=== PATIENT | female | born 1970 | race Asian ===

== ENCOUNTER 2018-03-19 15:37 | Emergency (ER) | payer BC ==
[~2018-03-19] VITALS: Ht 162.6 cm; Wt 66.7 kg
[2018-03-19 15:37] VITALS: BP_SYST 148
[2018-03-19 17:20] LABS: BILIRUBIN,URINE NEGATIVE (NEGATIVE); CLARITY/URINE CLEAR (CLEAR); COLOR,URINE YELLOW (YELLOW); GLUCOSE,URINE NEGATIVE (NEGATIVE); KETONES,URINE NEGATIVE (NEGATIVE); LEUKOCYTE ESTERASE ,URINE NEGATIVE (NEGATIVE); NITRITE, URINE NEGATIVE (NEGATIVE); PROTEIN URINE NEGATIVE (NEGATIVE); UROBILINOGEN,URINE 0.2 (0.2-1.0)
[2018-03-19 17:31] LABS: BLOOD, URINE TRACE (NEGATIVE)
[2018-03-19 17:33] LABS: BACTERIA,URINE FEW /HPF (None Seen); BARBITURATE, URINE NEGATIVE (NEG <=200); BENZODIAZEPINE, URINE NEGATIVE (NEG <=150); CANNABINOID, URINE NEGATIVE (NEG <=50); COCAINE, URINE NEGATIVE (NEG <=150); METHAMPHETAMINES SCREEN,URINE NEGATIVE (NEG <=500); MUCUS,URINE None Seen /LPF (None Seen); OPIATE, URINE NEGATIVE (NEG <=100); PHENCYCLIDINE SCREEN,URINE NEGATIVE (NEG <=25); RBC,URINE 0-3 /HPF (0-3); UR TRICYCLIC ANTIDEPRESSANTS NEGATIVE (NEG <=300); URINE AMPHETAMINE NEGATIVE (NEG <=500); URINE METHADONE NEGATIVE (NEG <=200); URINE OXYCODONE SCREEN NEGATIVE (NEG <=100); URINE PROPOXYPHENE SCREEN NEGATIVE (NEG <=300); WBC,URINE NONE SEEN /HPF (0-3)
[2018-03-19 17:36] LABS: BASOPHILS % (AUTO) 0.5 % (0.0-2.0); EOSINOPHILS % (AUTO) 1.1 % (0.0-4.0); HEMATOCRIT 43.1 % (36-48); HEMOGLOBIN 14.3 g/dL (12.0-16.0); LYMPHOCYTES % (AUTO) 20.4 % (20.5-51.5); MEAN CORPUSCULAR HEMOGLOBIN 27 pg (27-31); MEAN CORPUSCULAR HGB CONC 33 % (32-36); MEAN CORPUSCULAR VOLUME 82 fL (79.0-98.0); MONOCYTES % (AUTO) 4.8 % (1.7-9.3); NEUTROPHILS # (AUTO) 6.9 K/uL (1.8-7.7); NEUTROPHILS % (AUTO) 73.2 % (40.0-70.0); PLATELET COUNT (AUTO) 345 K/uL (130-430); RED BLOOD CELL COUNT(AUTO) 5.25 MIL/uL (4.2-6.2); RED CELL DISTRIBUTION WIDTH 14.5 % (9.0-15.0); WHITE BLOOD COUNT (AUTO) 9.4 K/uL (4.8-10.8)
[2018-03-19 17:37] LABS: EOSINOPHILS # (AUTO) 0.1 K/uL (0.0-0.4); LYMPHOCYTES # (AUTO) 1.9 K/uL (1.0-5.5); MONOCYTES # (AUTO) 0.5 K/uL (0.0-1.0)
[2018-03-19 17:38] LABS: ANION GAP 12 (5-15); CHLORIDE 101 mmol/L (98-107); GLUCOSE 111 mg/dL (70-99); INR 0.9 (0.8-1.2); PROTHROMBIN TIME 9.1 SECS (9.5-12.5); SODIUM SERUM 139 mmol/L (136-145); UREA NITROGEN, BLOOD 12 mg/dL (8-21)
[2018-03-19 17:40] LABS: GFR AFRICAN AMERICAN 98 mL/min (>90)
[2018-03-19 17:51] LABS: ALANINE AMINOTRANSFERASE 22 U/L (12-78); ASPARTATE AMINOTRANSFERASE 18 U/L (10-37); FREE T4 (FREE THYROXINE) 0.9 ng/dl (0.8-1.5); TOTAL BILIRUBIN 0.3 mg/dL (0.0-1.0)
[2018-03-19 17:52] LABS: ALCOHOL, BLOOD < 3 mg/dL (<10)
[2018-03-19] MEDS ORDERED: POTASSIUM CHLORIDE 20 MEQ TAB.PRT.SR PO ONE (18:00)
[2018-03-19 18:17] VITALS: BP_SYST 155
== END 2018-03-19 18:17 | disposition home or self-care (01) ==
LOC: SED 15:37
DX: R42 Dizziness and giddiness (principal); R03.0 Elevated blood-pressure reading, without diagnosis of hypertension; Z90.49 Acquired absence of other specified parts of digestive tract; Z90.89 Acquired absence of other organs; Z98.51 Tubal ligation status
CPT/HCPCS: 36415; 70450; 71045; 74018; 80053; 80307; 81000; 82140; 83605; 83880; 84439; 84484; 85025; 85610; 87040; 93005; 99284; G0482

== ENCOUNTER 2023-06-29 17:29 | Emergency (ER) | payer BC ==
[~2023-06-29] VITALS: Ht 162.6 cm; Wt 70.3 kg
[2023-06-29 17:50] VITALS: BP_SYST 168; PULSE 65; RESP 18; TEMP 98.3; O2SAT 98
[2023-06-29] MEDS: IBUPROFEN 600 MG TABLET PO ONE (19:16)
[2023-06-29] MEDS ORDERED: IBUP-1969 PO (19:27)
[2023-06-29 19:47] VITALS: BP_SYST 168; PULSE 65; RESP 18; TEMP 98.3; O2SAT 98
== END 2023-06-29 19:47 | disposition home or self-care (01) ==
LOC: SED 17:29
DX: S82.64XA Nondisplaced fracture of lateral malleolus of right fibula, initial encounter for closed fracture (principal); S82.891A Other fracture of right lower leg, initial encounter for closed fracture; W50.2XXA Accidental twist by another person, initial encounter; Y93.89 Activity, other specified; Y92.89 Other specified places as the place of occurrence of the external cause; Y99.8 Other external cause status
CPT/HCPCS: 99283